=== PATIENT | male | born 1950 | race Caucasian/White ===

== ENCOUNTER 2025-07-23 07:16 | Day surgery (SDC) | payer MEDICARE, OTHER, SELFPAY ==
--- NOTE | 2025-07-23 09:18 | ITS.CL.CARDI ---
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
Cardioversion
Procedure Report:
Date of Procedure:
Procedure: Cardioversion
Indication: Symptomatic atrial fibrillation
Performing Physician: Na Royal MD
Technique: The patient was brought to the holding area. Signed informed consent was obtained. A time out was called and performed. The patient was anesthetized by the anesthesia service. Anticoagulation status was reviewed and appropriate. R2 pads
were placed anteriorly and posteriorly. A (360) J synchronized biphasic shock restored normal sinus rhythm without significant bradycardia. There were no complications.
Conclusion: Uncomplicated cardioversion from atrial fibrillation to sinus rhythm.
Recommendation: Routine post cardioversion care. Continue correction anticoagulation.
== END 2025-07-23 09:19 | disposition home or self-care (01) ==
LOC: CATH 07:16
PROVIDERS: ATTENDING PHYSICIAN Internal Medicine Cardiovascular Disease; FAMILY PHYSICIAN Family Medicine
DX: I48.20 Chronic atrial fibrillation, unspecified (principal); I45.10 Unspecified right bundle-branch block; I49.1 Atrial premature depolarization; Z79.01 Long term (current) use of anticoagulants
CPT/HCPCS: 92960; 93005